=== PATIENT | female | born 1990 | race Caucasian/White ===

== ENCOUNTER 2018-10-27 05:52 | Observation (INO) | payer MEDICAID, OTHER ==
[~2018-10-27] VITALS: Ht 172.7 cm; Wt 67.3 kg
[2018-10-27] MEDS ORDERED: ONDANSETRON 2MG/ML, 2ML ONE (06:26)
[2018-10-27 06:27] LABS: MICROSCOPIC INDICATED
[2018-10-27] MEDS ORDERED: ONDANSETRON 2MG/ML, 2ML IVPush PRN (06:30)
[2018-10-27 06:47] VITALS: BP 119/73
[2018-10-27] MEDS ORDERED: LACTATED RINGERS 1,000 ML IVBOLUS ONE ×2 (07:00→08:00)
[2018-10-27 07:25] LABS: ALANINE AMINOTRANSFERASE 41 U/L (12-78); ALBUMIN 2.5 g/dL (3.4-5.0); ANION GAP 8 mmol/L (5-15); CALCIUM 7.9 mg/dL (8.5-10.1); CHLORIDE 108 mmol/L (98-107)
[2018-10-27 07:28] LABS: ALKALINE PHOSPHATASE 101 U/L (45-117); BILIRUBIN,TOTAL 1.3 mg/dL (0.2-1.0); CREATININE 0.48 mg/dL (0.55-1.02); TOTAL PROTEIN 6.1 g/dL (6.4-8.2)
[2018-10-27 07:45] LABS: AMPHETAMINE SCREEN, URINE Positive (Negative); BARBITURATE SCREEN, URINE Negative (Negative); BENZODIAZEPINE SCREEN, URINE Negative (Negative); CANNABINOID SCREEN, URINE Negative (Negative); COCAINE SCREEN, URINE Negative (Negative); METHADONE SCREEN, URINE Negative (Negative); OPIATE SCREEN, URINE Negative (Negative)
[2018-10-27 10:30] LABS: BASOPHILS # (AUTO) 0.03 x10^3/uL (0-0.1); BASOPHILS % (AUTO) 0 % (0-1); EOSINOPHILS # (AUTO) 0.01 x10^3/uL (0-0.4); EOSINOPHILS % (AUTO) 0 % (1-7); LYMPHOCYTES # (AUTO) 0.73 x10^3/uL (1-3.4); LYMPHOCYTES % (AUTO) 5 % (22-44); MD NO; MEAN CORPUSCULAR HEMOGLOBIN 30.6 pg (27.0-34.8); MEAN CORPUSCULAR HGB CONC 33.6 g/dL (32.4-35.8); MEAN PLATELET VOLUME 9.1 fL (7.4-10.4); MONOCYTES % (AUTO) 3 % (2-9); NEUTROPHILS # (AUTO) 12.53 x10^3/uL (1.8-6.8); NEUTROPHILS % (AUTO) 92 % (42-75); PLATELET COUNT 156 x10^3/uL (130-400); RED BLOOD COUNT 3.82 x10^6/uL (3.82-5.3); RED CELL DISTRIBUTION WIDTH 14.8 % (9.6-15.2)
== END 2018-10-27 12:00 | disposition home or self-care (01) ==
LOC: LDOP 05:52 → LDIP 09:28 → LDOP 09:36 → LDIP 09:37 → UNDODISOB 12:00
PROVIDERS: ADMIT Obstetrics & Gynecology; ATTEND Obstetrics & Gynecology
DX: O21.2 Late vomiting of pregnancy (principal); O26.893 Other specified pregnancy related conditions, third trimester; R10.9 Unspecified abdominal pain; O99.513 Diseases of the respiratory system complicating pregnancy, third trimester; J45.909 Unspecified asthma, uncomplicated; Z87.891 Personal history of nicotine dependence; Z3A.29 29 weeks gestation of pregnancy
CPT/HCPCS: 36415; 59025; 80053; 80307; 81001; 85025; 86592; 86762; 86850; 86900; 87086; 87340; 87806; 96374; G0378; J2405; J7120; 96360; 96361; G0475

== ENCOUNTER 2018-11-23 00:52 | Outpatient (CLI) | payer MEDICAID ==
[~2018-11-23] VITALS: Ht 172.7 cm; Wt 69.5 kg
[2018-11-23 01:08] VITALS: BP 117/62
[2018-11-23 01:36] LABS: AMPHETAMINE SCREEN, URINE Negative (Negative); BARBITURATE SCREEN, URINE Negative (Negative); BENZODIAZEPINE SCREEN, URINE Negative (Negative); CANNABINOID SCREEN, URINE Negative (Negative); COCAINE SCREEN, URINE Negative (Negative); METHADONE SCREEN, URINE Negative (Negative); OPIATE SCREEN, URINE Negative (Negative)
== END 2018-11-23 01:50 | disposition home or self-care (01) ==
LOC: LDOP 00:52
PROVIDERS: ATTEND Obstetrics & Gynecology
DX: O46.8X3 Other antepartum hemorrhage, third trimester (principal); N93.9 Abnormal uterine and vaginal bleeding, unspecified; Z3A.33 33 weeks gestation of pregnancy
CPT/HCPCS: 59025; 80307; 99211; G0463

== ENCOUNTER 2018-12-27 01:24 | Observation (INO) | payer MEDICAID ==
[~2018-12-27] VITALS: Ht 170.2 cm; Wt 72.7 kg
[2018-12-27 01:38] VITALS: BP 101/59
[2018-12-27 02:28] LABS: MICROSCOPIC INDICATED
[2018-12-27 02:31] LABS: AMPHETAMINE SCREEN, URINE Negative (Negative); BARBITURATE SCREEN, URINE Negative (Negative); BENZODIAZEPINE SCREEN, URINE Negative (Negative); CANNABINOID SCREEN, URINE Negative (Negative); COCAINE SCREEN, URINE Negative (Negative); METHADONE SCREEN, URINE Negative (Negative); OPIATE SCREEN, URINE Negative (Negative)
[2018-12-27] MEDS ORDERED: PREN1TAB60 PO (02:46)
[2018-12-27] MEDS ORDERED: PROMETHAZINE 25 MG/ML, 1ML ONE (03:49)
[2018-12-27] MEDS ORDERED: MEPERIDINE/PF 100 MG/ML ONE (03:52)
[2018-12-27] MEDS ORDERED: MEPERIDINE/PF 100 MG/ML IM PRN (04:00)
[2018-12-27] MEDS ORDERED: PROMETHAZINE 25 MG/ML, 1ML IM ONE (04:00)
== END 2018-12-27 04:39 | disposition home or self-care (01) ==
LOC: LDOP 01:24 → LDIP 03:26
PROVIDERS: ADMIT Obstetrics & Gynecology; ATTEND Obstetrics & Gynecology
DX: O75.82 Onset (spontaneous) of labor after 37 completed weeks of gestation but before 39 completed weeks gestation, with delivery by (planned) cesarean section (principal); O99.333 Smoking (tobacco) complicating pregnancy, third trimester; F17.200 Nicotine dependence, unspecified, uncomplicated; Z3A.38 38 weeks gestation of pregnancy
CPT/HCPCS: 80307; 81001; 81025; 87086; 96372; G0378; J2175; J2550; 59025; 99211; G0463

== ENCOUNTER 2018-12-27 18:41 | Inpatient (IN) | payer MEDICAID ==
[~2018-12-27] VITALS: Ht 170.2 cm; Wt 72.0 kg
[~2018-12-27 18:41] MED LIST: PREN1TAB60 PO
[2018-12-27 18:49] VITALS: BP 123/61
[2018-12-27] MEDS ORDERED: D5%-LACTATED RINGERS 1,000 ML IV SCH (18:53)
[2018-12-27] MEDS ORDERED: OXYTOCIN 30U/ 0.9% NaCL 500ML 500 ML IV ONE (18:53)
[2018-12-27] MEDS ORDERED: FENTANYL/BUPIV./NS/PF 250 ML EPIDCONT SCH (18:55)
[2018-12-27] MEDS ORDERED: OXYTOCIN 30U/ 0.9% NaCL 500ML 500 ML ONE (18:59)
[2018-12-27] MEDS ORDERED: NEWBORN KIT ONE (18:59)
[2018-12-27] MEDS ORDERED: MISOPROSTOL 200 MCG TABLET ONE (18:59)
[2018-12-27] MEDS ORDERED: LIDOCAINE 1%, 20ML ONE (18:59)
[2018-12-27] MEDS ORDERED: METOCLOPRAMIDE 5 MG/ML, 2ML IVPush PRN (19:00)
[2018-12-27] MEDS ORDERED: SODIUM CITRATE/CITRIC ACID 15 ML UDC PO PRN (19:00)
[2018-12-27] MEDS ORDERED: TERBUTALINE 1 MG/ML, 1ML IVPush PRN (19:00)
[2018-12-27] MEDS ORDERED: FENTANYL PF 100 MCG/2ML IV PRN (19:00)
[2018-12-27] MEDS ORDERED: ONDANSETRON 2MG/ML, 2ML IVPush PRN (19:00)
[2018-12-27] MEDS ORDERED: CALCIUM CARBONATE 500 MG TAB.CHEW PO PRN (19:00)
[2018-12-27 19:09] LABS: MEAN CORPUSCULAR HEMOGLOBIN 30.8 pg (27.0-34.8); MEAN CORPUSCULAR HGB CONC 32.9 g/dL (32.4-35.8); MEAN CORPUSCULAR VOLUME 93.6 fL (80-100); MEAN PLATELET VOLUME 9.8 fL (7.4-10.4); PLATELET COUNT 131 x10^3/uL (130-400); RED CELL DISTRIBUTION WIDTH 15.8 % (9.6-15.2)
[2018-12-27 19:11] LABS: AMPHETAMINE SCREEN, URINE Negative (Negative); BARBITURATE SCREEN, URINE Negative (Negative); BENZODIAZEPINE SCREEN, URINE Negative (Negative); CANNABINOID SCREEN, URINE Negative (Negative); COCAINE SCREEN, URINE Negative (Negative); METHADONE SCREEN, URINE Negative (Negative); OPIATE SCREEN, URINE Negative (Negative)
[2018-12-27 19:17] LABS: MD YES
[2018-12-27] MEDS ORDERED: FENTANYL PF 500 MCG, BUPIVACAINE/PF 0.5%, 30ML 62.5 ML in SODIUM CHLORIDE 0.9% 177.5 ML EPIDCONT SCH (19:30)
[2018-12-27 19:47] LABS: BAND#(MANUAL) 0.86 x10^3/uL; BANDS%(MANUAL) 4 % (0-7); EOS#(MANUAL) 0.22 x10^3/uL (0.0-0.4); EOS% (MANUAL) 1 % (1-7); LYMPH#(MANUAL) 1.94 x10^3/uL (1-3.4); LYMPHS% (MANUAL) 9 % (22-44); MONOS#(MANUAL) 1.94 x10^3/uL (0.3-2.7); MONOS% (MANUAL) 9 % (2-9); SEG#(MANUAL) 16.63 x10^3/uL (1.8-6.8); SEGS% (MANUAL) 77 % (42-75)
[2018-12-27 19:48] LABS: <PLATELET ESTIMATE> ADEQUATE; <PLT MORPHOLOGY> NORMAL PLT MORPH; <RBC MORPHOLOGY> NORMAL
[2018-12-27] MEDS ORDERED: LIDOCAINE/PF 1.5%-EPI 1:200K, 30ML ONE (19:53)
[2018-12-27] MEDS ORDERED: BUPIVACAINE 0.25% ONE (19:53)
[2018-12-27] MEDS: LACTATED RINGERS 1,000 ML IV SCH ×2 (19:58→23:01)
[2018-12-27] MEDS ORDERED: OXYcodone/APAP 5/325MG TABLET PO PRN (20:00)
[2018-12-27] MEDS ORDERED: MISOPROSTOL 200 MCG TABLET PR PRN (20:00)
[2018-12-27] MEDS ORDERED: OXYTOCIN 30U/ 0.9% NaCL 500ML 500 ML IV PRN (21:32)
[2018-12-28] MEDS ORDERED: IBUPROFEN 600 MG TABLET ONE (03:59)
[2018-12-28] MEDS ORDERED: OXYTOCIN 30U/ 0.9% NaCL 500ML 500 ML ONE (04:00)
[2018-12-28] MEDS: IBUPROFEN 600 MG TABLET PO PRN ×3 (04:01→18:20)
[2018-12-28] MEDS: OXYTOCIN 30U/ 0.9% NaCL 500ML 500 ML IV SCH ×3 (04:02→15:55)
[2018-12-28 06:15] VITALS: BP 108/67
[2018-12-28 08:37] VITALS: BP 108/68
[2018-12-28 10:44] LABS: MEAN CORPUSCULAR HEMOGLOBIN 30.3 pg (27.0-34.8); MEAN CORPUSCULAR HGB CONC 32.4 g/dL (32.4-35.8); MEAN CORPUSCULAR VOLUME 93.3 fL (80-100); MEAN PLATELET VOLUME 9.7 fL (7.4-10.4); PLATELET COUNT 123 x10^3/uL (130-400); RED BLOOD COUNT 3.67 x10^6/uL (3.82-5.3); RED CELL DISTRIBUTION WIDTH 16.1 % (9.6-15.2)
[2018-12-28 11:05] LABS: MD YES
[2018-12-28 11:10] LABS: <PLATELET ESTIMATE> DECREASED; <PLT MORPHOLOGY> NORMAL PLT MORPH; BAND#(MANUAL) 1.37 x10^3/uL; BANDS%(MANUAL) 6 % (0-7); LYMPH#(MANUAL) 4.12 x10^3/uL (1-3.4); LYMPHS% (MANUAL) 18 % (22-44); METAMYELOCYTES# (MANUAL) 0.23 x10^3/uL (0-0); METAMYELOCYTES% (MANUAL) 1 % (0-1); MONOS#(MANUAL) 1.15 x10^3/uL (0.3-2.7); MONOS% (MANUAL) 5 % (2-9); SEG#(MANUAL) 16.03 x10^3/uL (1.8-6.8); SEGS% (MANUAL) 70 % (42-75)
[2018-12-28 11:11] LABS: TOXIC GRAN 1+
[2018-12-28 11:13] LABS: ANISOCYTOSIS 1+
[2018-12-28] MEDS: PRENATAL VIT/IRON/FA 1 EACH TABLET PO SCH (11:25)
[2018-12-28] MEDS: DOCUSATE 100 MG CAPSULE PO PRN ×2 (11:26→20:11)
[2018-12-28 12:52] VITALS: BP 111/72
[2018-12-28 16:42] VITALS: BP 109/70
[2018-12-28 19:30] VITALS: BP 110/67
[2018-12-29] VITALS: BP 92/55
[2018-12-29] MEDS: OXYTOCIN 30U/ 0.9% NaCL 500ML 500 ML IV SCH ×3 (01:55→21:55)
[2018-12-29 03:38] VITALS: BP 113/65
[2018-12-29 08:04] VITALS: BP 107/66
[2018-12-29] MEDS: IBUPROFEN 600 MG TABLET PO PRN ×4 (08:34→23:10)
[2018-12-29] MEDS: PRENATAL VIT/IRON/FA 1 EACH TABLET PO SCH (08:34)
[2018-12-29] MEDS: DOCUSATE 100 MG CAPSULE PO PRN ×2 (08:34→23:10)
[2018-12-29 16:00] VITALS: BP 112/72
[2018-12-29 20:05] VITALS: BP 119/72
[2018-12-30] MEDS: IBUPROFEN 600 MG TABLET PO PRN (05:46)
[2018-12-30] MEDS: PRENATAL VIT/IRON/FA 1 EACH TABLET PO SCH (07:33)
[2018-12-30] MEDS: DOCUSATE 100 MG CAPSULE PO PRN (07:34)
[2018-12-30 07:35] VITALS: BP 101/64
[2018-12-30] MEDS: OXYTOCIN 30U/ 0.9% NaCL 500ML 500 ML IV SCH (07:55)
== END 2018-12-30 11:17 | disposition home or self-care (01) | DRG 807 ==
LOC: LDOP 18:41 → LDIP 18:52 → UNDOADMIN 18:52 → LDIP 18:53 → 2NW 12-28 05:47
PROVIDERS: ADMIT Obstetrics & Gynecology; ATTEND Obstetrics & Gynecology
PROC: 10E0XZZ Delivery of Products of Conception, External Approach (ICD-10-PCS; principal; 2018-12-28)
PROC: 0W8NXZZ Division of Female Perineum, External Approach (ICD-10-PCS; 2018-12-28)
PROC: 3E0R3BZ Introduction of Anesthetic Agent into Spinal Canal, Percutaneous Approach (ICD-10-PCS; 2018-12-28)
PROC: 00HU33Z Insertion of Infusion Device into Spinal Canal, Percutaneous Approach (ICD-10-PCS; 2018-12-28)
PROC: 10907ZC Drainage of Amniotic Fluid, Therapeutic from Products of Conception, Via Natural or Artificial Opening (ICD-10-PCS; 2018-12-28)
DX: O69.81X0 Labor and delivery complicated by cord around neck, without compression, not applicable or unspecified (principal); Z37.0 Single live birth; Z3A.38 38 weeks gestation of pregnancy
CPT/HCPCS: 36415; J7121; S0020; 80307; 85025; 86850; 86900; G0378; J3010; J2590; J7050; J7120